=== PATIENT | female | born 1930 ===

== ENCOUNTER 2017-09-09 23:35 | Emergency (ER) | payer MEDICARE ==
[2017-09-09 23:47] VITALS: RESP 16; O2SAT 97
[2017-09-10] MEDS ORDERED: Tdap Vaccine 0.5 ml Vial (10-64 yrs) IM ONE ×2 (00:17→00:42)
--- NOTE | 2017-09-10 00:46 | CT ---
EXAM: CT Head Without Intravenous Contrast CLINICAL HISTORY: 87 years old, female; Injury or trauma; Fall; Initial encounter; Blunt trauma (contusions or hematomas); Additional info: Head injury TECHNIQUE: Axial computed tomography images of the head/brain without intravenous contrast. All CT scans at this facility use one or more dose reduction techniques, viz.: automated exposure control; ma/kV adjustment per patient size (including targeted exams where dose is matched to indication; i.e. head); or iterative reconstruction technique. Coronal and sagittal reformatted images were created and reviewed. COMPARISON: No relevant prior studies available. FINDINGS: Brain: Atrophy. No hemorrhage. No significant white matter disease. No edema. Ventricles: No hydrocephalus. Bones: Skull is intact. Sinuses: No acute sinusitis. Mastoid air cells: No mastoid effusion. IMPRESSION: No CT evidence of acute intracranial abnormality.
--- NOTE | 2017-09-10 01:11 | ED PDOC ---
HPI: Head Injury Time Seen by Provider: 09/09/17 23:55 Chief Complaint (Nursing): Trauma Chief Complaint (Provider): head injury History Per: Patient History/Exam Limitations: no limitations Onset/Duration Of Symptoms: Hrs (prior to arrival), Days (09/09/17) Patient States: Fell Striking Head Loss Of Consciousness: No Additional Complaint(s): 87 year old female with a past medical history of hypertension presents to the ED complaining of falling prior to arrival and hit back of head. Her sister passed out and fell on the patient and the patient lost her balance and hit her head. Denies loss of consciousness, syncope, or headache. PMD: Jared Daniels Past Medical History Reviewed: Historical Data, Nursing Documentation, Vital Signs Vital Signs: Last Vital Signs Temp 97.9 F 09/09/17 23:42 Pulse 121 H 09/09/17 23:42 Resp 16 09/09/17 23:42 BP 163/71 H 09/09/17 23:42 Pulse Ox 97 09/09/17 23:42 - Medical History PMH: HTN - Surgical History Surgical History: Appendectomy Other surgeries: colectomy; knee surgery - Family History Family History: States: Unknown Family Hx - Allergies Allergies/Adverse Reactions: Allergies Allergy/AdvReac Type Severity Reaction Status Date / Time Penicillins Allergy RASH Verified 09/09/17 23:42 Review of Systems ROS Statement: Except As Marked, All Systems Reviewed And Found Negative Skin: Positive for: Other (laceration on back of head) Neurological: Negative for: Headache, Dizziness, Other (loss of consciousness) Physical Exam - Reviewed Nursing Documentation Reviewed: Yes Vital Signs Reviewed: Yes - Physical Exam Appears: Positive for: Non-toxic, No Acute Distress Head Exam: Positive for: ATRAUMATIC, NORMAL INSPECTION, NORMOCEPHALIC Skin: Positive for: Normal Color, Warm, Dry Eye Exam: Positive for: EOMI, Normal appearance, PERRL ENT: Positive for: Normal ENT Inspection Neck: Positive for: Normal, Painless ROM, Supple. Negative for: Decreased ROM Cardiovascular/Chest: Positive for: Regular Rate, Rhythm. Negative for: Murmur Respiratory: Positive for: Normal Breath Sounds. Negative for: Decreased Breath Sounds, Accessory Muscle Use, Respiratory Distress Gastrointestinal/Abdominal: Positive for: Normal Exam, Bowel Sounds, Soft. Negative for: Tenderness, Guarding, Rebound Back: Positive for: Normal Inspection. Negative for: L CVA Tenderness, R CVA Tenderness Extremity: Positive for: Normal ROM. Negative for: Tenderness, Pedal Edema, Deformity Neurologic/Psych: Positive for: Alert, Oriented (x3), Other (5cm laceration on back of head). Negative for: Motor/Sensory Deficits - ECG O2 Sat by Pulse Oximetry: 97 (RA) Pulse Ox Interpretation: Normal Medical Decision Making Medical Decision Making: Time: 16 Initial Impression: Head injury and mechanical fall rule out traumatic intracranial bleeding Initial Plan: --Head w/o contrast --Adacel (10-64 yrs) 0.5ml IM --Reevaluation Time: 45 EXAM: CT Head Without Intravenous Contrast FINDINGS: Brain: Atrophy. No hemorrhage. No significant white matter disease. No edema. Ventricles: No hydrocephalus. Bones: Skull is intact. Sinuses: No acute sinusitis. Mastoid air cells: No mastoid effusion. IMPRESSION: No CT evidence of acute intracranial abnormality. PROCEDURE: LACERATION Performed by the emergency provider Location:Head Length: 5 cm Description:"clean wound edges","no foreign bodies" Distal CMS:Normal. No deficits. Neurovascularly intact. Anesthesia:none Exploration:The wound was explored and irrigated no foreign bodies were found. Procedure:The wound was stapled. In total, 2 nadia were used. Post-Procedure:Good closure and hemostasis. The patient tolerated the procedure well and there were no complications. CSM remains intact. Post procedure dressing applied. Clinical Impression: head injury and laceration of scalp Upon provider evaluation patient is medically stable, and requires no further treatment in the ED at this time. Patient will be discharged. Counseling was provided and all questions were answered regarding diagnosis and need for follow up with PMD. There is agreement to discharge plan. Return if symptoms persist or worsen. Scribe Attestation: Documented by Seamus Fleming, acting as a scribe for Issac Prasad MD Provider Scribe Attestation: All medical record entries made by the Scribe were at my direction and personally dictated by me. I have reviewed the chart and agree that the record accurately reflects my personal performance of the history, physical exam, medical decision making, and the department course for this patient. I have also personally directed, reviewed, and agree with the discharge instructions and disposition. Procedures - Time-Out Type of Procedure: Laceration Site of Procedure: Head Correct Patient (with visual ID + MR# on ID Band): Yes Correct Procedure: Yes Correct Site Marked: Yes X-Ray Marked: NA Medication Reconciliation / Bloodwork / Allergies Checked: Yes Physician Name: Dr. Prasad - Laceration/Wound Repair Head Wound Length (cm): 5 Wound Explored: no bleeding Wound Repaired With: [place] (2) Wound Complexity: Simple Disposition - Clinical Impression Clinical Impression: Head injury, Laceration of scalp - Disposition Referrals: Ivan Diaz DO [[facility]] - Disposition: Routine/Home Disposition Time: 01:00 Condition: GOOD Additional Instructions: Follow up with your PCP in 5 days for suture removal. Return for worsening or new symptoms. Instructions: Closed Head Injury (DC), Laceration Repair With Nadia (DC) Print Language: ICELANDIC
[2017-09-10 01:46] VITALS: BP 142/67; PULSE 98; TEMP 98.6
== END 2017-09-10 01:25 | disposition home or self-care (01) ==
LOC: H.ER 23:35
DX: S01.01XA Laceration without foreign body of scalp, initial encounter (principal); I10 Essential (primary) hypertension; Z88.0 Allergy status to penicillin; W01.10XA Fall on same level from slipping, tripping and stumbling with subsequent striking against unspecified object, initial encounter; Z23 Encounter for immunization

== ENCOUNTER 2017-09-14 10:04 | Emergency (ER) | payer MEDICARE ==
[2017-09-14 10:28] VITALS: BP 151/59; PULSE 100; RESP 20; TEMP 98.4; O2SAT 98
--- NOTE | 2017-09-14 10:51 | ED PDOC ---
HPI: Wound Care - HPI Time Seen by Provider: 09/14/17 10:17 Chief Complaint (Nursing): Suture/Staple Removal Chief Complaint (Provider): Staple removal - 2 in posterior scalp History Per: Patient Exam Limitations: no limitations Severity: None Additional Complaint(s): Pt was seen 09/10/17 after a fall and 2 kelsey placed in posterior scalp. Pt was told to return in 5 days for staple removal. Pt reports very little pain. No current complaints. Past Medical History Reviewed: Historical Data, Nursing Documentation, Vital Signs Vital Signs: Last Vital Signs Temp 98.4 F 09/14/17 10:25 Pulse 100 H 09/14/17 10:25 Resp 20 09/14/17 10:25 BP 151/59 H 09/14/17 10:25 Pulse Ox 98 09/14/17 10:25 - Medical History PMH: HTN - Surgical History Surgical History: Appendectomy - Family History Family History: States: Unknown Family Hx - Living Arrangements Living Arrangements: With Family - Social History Current smoker - smoking cessation education provided: No - Immunization History Hx Tetanus Toxoid Vaccination: Yes Hx Influenza Vaccination: No Hx Pneumococcal Vaccination: No - Allergies Allergies/Adverse Reactions: Allergies Allergy/AdvReac Type Severity Reaction Status Date / Time Penicillins Allergy RASH Verified 09/14/17 10:25 Review of Systems ROS Statement: Except As Marked, All Systems Reviewed And Found Negative Constitutional: Negative for: Fever, Chills Skin: Positive for: Other Physical Exam - Reviewed Nursing Documentation Reviewed: Yes Vital Signs Reviewed: Yes - Physical Exam Appears: Positive for: Well, Non-toxic, No Acute Distress Head Exam: Positive for: ATRAUMATIC, NORMAL INSPECTION, NORMOCEPHALIC Skin: Positive for: Warm. Negative for: Normal Color (Healing laceration, linear of the posterior scalp ) Eye Exam: Positive for: Normal appearance ENT: Positive for: Normal ENT Inspection Neck: Positive for: Normal, Painless ROM Respiratory: Negative for: Accessory Muscle Use, Respiratory Distress Back: Positive for: Normal Inspection Extremity: Positive for: Normal ROM Neurologic/Psych: Positive for: Alert, Oriented - ECG O2 Sat by Pulse Oximetry: 98 Medical Decision Making Medical Decision Making: Wound not healed enough for kelsey to be removed. Discussed return in 3 days for staple removal. Disposition - Clinical Impression Clinical Impression: Visit for wound check - Patient ED Disposition Is Patient to be Admitted: No - Disposition Disposition: Routine/Home Disposition Time: 10:54 Condition: STABLE Additional Instructions: Please return in 3 days for staple removal.
== END 2017-09-14 11:21 | disposition home or self-care (01) ==
LOC: H.ER 10:04
DX: Z48.02 Encounter for removal of sutures (principal); I10 Essential (primary) hypertension; Z88.0 Allergy status to penicillin

== ENCOUNTER 2017-09-17 13:18 | Emergency (ER) | payer MEDICARE ==
--- NOTE | 2017-09-17 13:34 | ED PDOC ---
HPI: Wound Care - HPI Time Seen by Provider: 09/17/17 13:26 Chief Complaint (Provider): Staple Removal History Per: Patient Exam Limitations: no limitations Onset/Duration Of Symptoms: Days Additional Complaint(s): Carla Carpenter is an 87 year old female with a past medical history of hypertension who is presenting to the ER for a staple removal from the head. Patient was here in the ER 3 days ago, but was told it was too early and to report to ER today. She denies any pain, or medical complaints. PMD: Jared Daniels Past Medical History Reviewed: Historical Data, Nursing Documentation, Vital Signs - Medical History PMH: HTN - Surgical History Surgical History: Appendectomy - Family History Family History: States: Unknown Family Hx - Social History Current smoker - smoking cessation education provided: No Alcohol: None Drugs: Denies - Immunization History Hx Tetanus Toxoid Vaccination: Yes Hx Influenza Vaccination: No Hx Pneumococcal Vaccination: No - Allergies Allergies/Adverse Reactions: Allergies Allergy/AdvReac Type Severity Reaction Status Date / Time Penicillins Allergy RASH Verified 09/14/17 10:25 Review of Systems ROS Statement: Except As Marked, All Systems Reviewed And Found Negative Constitutional: Positive for: Other ( nadia in the head) Neurological: Negative for: Other (no pain to nadia in head) Physical Exam - Reviewed Nursing Documentation Reviewed: Yes Vital Signs Reviewed: Yes - Physical Exam Appears: Positive for: Well, Non-toxic, No Acute Distress Head Exam: Positive for: ATRAUMATIC (2 cm nadia in head, (-) surrounding erythema, (-) edema, (-) drainage or signs of infection), NORMAL INSPECTION, NORMOCEPHALIC Skin: Positive for: Normal Color Neurologic/Psych: Positive for: Alert, Oriented Medical Decision Making Medical Decision Making: Time: 13:15 Patient had a staple removal in the ER. Nadia were easily removed and no signs of infection were noted. Patient denies any other medical complaints at this time. Upon provider evaluation patient is medically stable, and requires no further treatment in the ED at this time. Patient will be discharged home. Scribe Attestation: Documented by Juliet Francisco, acting as a scribe for Wilma Naidu PA-C Provider Scribe Attestation: All medical record entries made by the Scribe were at my direction and personally dictated by me. I have reviewed the chart and agree that the record accurately reflects my personal performance of the history, physical exam, medical decision making, and the department course for this patient. I have also personally directed, reviewed, and agree with the discharge instructions and disposition. Disposition - Clinical Impression Clinical Impression: Removal of staple - Disposition Disposition: Routine/Home Disposition Time: 13:26 Condition: STABLE Instructions: Staple Removal Forms: [employer] (Irish)
[2017-09-17 13:36] VITALS: BP 133/56; PULSE 88; RESP 16; TEMP 98.7; O2SAT 100
== END 2017-09-17 13:39 | disposition home or self-care (01) ==
LOC: H.ER 13:18
DX: Z48.02 Encounter for removal of sutures (principal); I10 Essential (primary) hypertension; Z88.0 Allergy status to penicillin